=== PATIENT | male | born 1970 | race Caucasian/White ===

== ENCOUNTER 2017-02-12 15:59 | Emergency (ER) | payer MEDICAID ==
[2017-02-12 16:04] VITALS: BP 125/81; PULSE 88; RESP 20; TEMP 98.1; O2SAT 97
[2017-02-12] MEDS ORDERED: Amoxicillin-Clav 875-125 mg Tab PO STA (16:25)
--- NOTE | 2017-02-12 16:27 | C.PDOC ---
History Of Present Illness 46 yo male w/o significant PMHx come in for evaluation of Right earache associated with " ear clogging, intermittent ringing" for past 8 days. Pt admits , proceeded URI sx. Otherwise, pt denies known trauma or injury, fever, chills, headache, dizziness, vertigo, visual changes, focal deficits,drooling, ear discharge, denies neck pain, sore throat, cough, CP, SOB, dyspnea, denies any other active complaints. Ambulate to Ed for evaluation, not in any apparent distress. Time Seen by Provider: 02/12/17 16:08 Chief Complaint (Nursing): ENT Problem History Per: Patient Onset/Duration Of Symptoms: Gradual Past Medical History Reviewed: Historical Data, Nursing Documentation, Vital Signs Vital Signs: Last Vital Signs Temp 98.1 F 02/12/17 16:02 Pulse 88 02/12/17 16:02 Resp 20 02/12/17 16:02 BP 125/81 02/12/17 16:02 Pulse Ox 97 02/12/17 16:02 - Medical History PMH: No Chronic Diseases Surgical History: No Surg Hx Family History: States: No Known Family Hx - Social History Hx Alcohol Use: No Hx Substance Use: No - Immunization History Hx Tetanus Toxoid Vaccination: No Hx Influenza Vaccination: No Review Of Systems Except As Marked, All Systems Reviewed And Found Negative. Constitutional: Negative for: Fever, Chills Eyes: Negative for: Vision Change, Redness ENT: Positive for: Ear Pain. Negative for: Ear Discharge, Nose Discharge, Nose Congestion, Throat Pain Cardiovascular: Negative for: Chest Pain, Palpitations, Light Headedness Respiratory: Negative for: Cough, Shortness of Breath, Wheezing Gastrointestinal: Negative for: Nausea, Vomiting, Abdominal Pain Genitourinary: Negative for: Dysuria Skin: Negative for: Rash Neurological: Negative for: Weakness, Numbness, Altered Mental Status, Headache , Dizziness Physical Exam - Physical Exam Appears: Well, Non-toxic, No Acute Distress Skin: Normal Color, Warm, Dry, No Rash Eye(s): bilateral: PERRL Ear(s): Left: Normal, Right: TM Dull, Other (fluid level behind TM) Nose: No Discharge Oral Mucosa: Moist, No Drooling, No Trismus Tongue: Normal Appearing Lips: Normal Appearing Throat: No Erythema, No Exudate, No Drooling, Other (Uvula midline, no edema.) Neck: Supple Lymphatic: No Adenopathy (cervical) Chest: Symmetrical Extremity: No Pedal Edema Neurological/Psych: Oriented x3, Normal Speech, Normal Motor, Normal Sensation, Normal Reflexes ED Course And Treatment O2 Sat by Pulse Oximetry: 97 Pulse Ox Interpretation: Normal Progress Note: On re-eavluation, pt is afebrile, hemodynamicaly stable. Non- toxic. Ambulatory in ED with stable gait. PulseOx 97% RA. ENT: exam c/w Right serous OM. Neck: (-) meningeals ign. Lungs: CTA B/L, BS equal B/L. Neurologicaly intact. Pt advised and ref. to f/u with ENT in 2-3 days for re- eval and further pain control. Disposition Counseled Patient/Family Regarding: Diagnosis, Need For Followup, Rx Given - Disposition Referrals: Antwan Vidales MD [Staff Provider] - Disposition: HOME/ ROUTINE Disposition Time: 16:25 Condition: STABLE Additional Instructions: Take medication as prescribed Keep ear dry, avoid water exposure Follow up with ENT In 2-3 days for re-evaluation. Return if any new changes. Prescriptions: Amoxicillin/Clavulanate [Augmentin 875 MG-125 MG] 1 tab PO BID #14 tab Prednisone [Deltasone] 20 mg PO DAILY #3 tablet Instructions: Serous Otitis Media (ED) - Clinical Impression Clinical Impression: Serous otitis media
[2017-02-12] MEDS ORDERED: Amoxicillin-Clav 875-125 mg Tab PO ONE (16:31)
== END 2017-02-12 16:45 | disposition home or self-care (01) ==
LOC: C.ER 15:59
DX: H65.91 Unspecified nonsuppurative otitis media, right ear (principal)